=== PATIENT | male | born 1990 | race Caucasian/White ===

== ENCOUNTER 2022-02-15 11:36 | Emergency (ER) | payer MEDICAID ==
--- NOTE | 2022-02-15 12:12 | NUR ---
called for patient no answer
--- NOTE | 2022-02-15 12:50 | NUR ---
called patient. no answer at this time.
--- NOTE | 2022-02-15 12:50 | NUR ---
CALLED PATIENT THROUGH TELEPHONE NO ANSWER
--- NOTE | 2022-02-15 12:50 | NUR ---
PATIENT LEFT WITHOUT BEING SEEN BY DR. COOMBS. NO FURTHER CARE PROVIDED FOR PATIENT.
== END 2022-02-15 12:12 | disposition left against medical advice (07) ==
LOC: MED 11:36
DX: R51.9 Headache, unspecified (principal); Z53.21 Procedure and treatment not carried out due to patient leaving prior to being seen by health care provider